=== PATIENT | female | born 1970 | race Caucasian/White ===

== ENCOUNTER 2019-04-16 12:09 | Inpatient (IN) ==
[2019-04-16] MEDS ORDERED: SODIUM CHLORIDE 0.9% 1,000 ML IV STA ×2 (12:31→14:23)
[2019-04-16] MEDS ORDERED: ONDANSETRON 4 MG/2 ML VIAL IV STA (12:31)
[2019-04-16] MEDS ORDERED: methylPREDNISolone SOD SUC 125 MG/2 ML VIAL IV STA (12:31)
[2019-04-16] MEDS ORDERED: cefTRIAXone 1,000 MG in SODIUM CHLORIDE 0.9% 100 ML IV STA (12:31)
[2019-04-16] MEDS ORDERED: LEVOFLOXACIN INJ 750 MG in PREMIX 1 EACH IV STA (12:31)
[2019-04-16] MEDS ORDERED: ALBUTEROL NEB SOLN 5 MG/ML 20 ML/BOTTLE RESP TX SCH (13:00)
[2019-04-16 13:52] LABS: Basophils # 0.2 10*3/uL (0.0-0.2); Basophils % 0.7 % (0.0-0.8); Eosinophils # 0.1 10*3/uL (0.0-0.87); Eosinophils % 0.3 % (0.00-10.9); Hematocrit 35.9 VOL% (35.7-47.0); Hemoglobin 12.1 GM/DL (12.0-16.0); Immature Granulocytes % 1.1 %; Immature Granulocytes Absolute 0.31 #; Lymphocytes # 4.7 10*3/uL (1.4-4.0); Lymphocytes % 17.2 % (21.3-54.2); Mean Corpuscular HGB Conc 33.7 GM/DL (32-36); Mean Corpuscular Volume 89.3 FL (87-102); Mean Platelet Volume 9.6 FL (9.6-12.0); Monocytes % 9.7 % (1.7-12.7); Platelet Count 474 T/CUMM (130-400); Red Blood Count 4.02 MC/CUMM (3.8-5.5); Red Cell Distribution Width 14.4 % (9.3-17.3); White Blood Count 27.2 T/CUMM (4-12)
[2019-04-16 14:06] LABS: Barbiturates Screen,Urine Negative (Negative); Benzodiazepines Screen,Urine Positive (Negative); Cannabinoid Screen,Urine Negative (Negative); Opiate Screen,Urine Negative (Negative); Phencyclidine Screen,Urine Negative (Negative)
[2019-04-16 14:09] LABS: Apearance,Urine CLOUDY (Clear); Bilirubin,Urine Negative (Negative); Blood, Urine Negative (Negative); Glucose,Urine (UA) Negative (Negative); Hyaline Casts,Urine 388 /LPF (0-3); Ketones,Urine Negative (Negative); Mucus,Urine Few /LPF (Occasional); Nitrite,Urine Negative (Negative); Protein,Urine 30 MG/DL; RBC,Urine 20 /HPF (0-4); Urine Color Amber (Yellow); Urine Specific Gravity 1.019 (1.001-1.035); WBC,Urine 682 /HPF (0-6)
[2019-04-16 14:09] LABS: INR 1.1; PT Patient Result 11.4 SECS (9.6-12.2); Partial Thromboplastin Time 36.3 SECS (20.8-36.0)
[2019-04-16 14:19] LABS: Alanine Aminotransferase 15 U/L (13-56); Albumin 3.3 G/DL (3.4-5.0); Alkaline Phosphatase 177 U/L (45-117); Aspartate Amino Transferase 11 U/L (0-37); Blood Urea Nitrogen 20 MG/DL (7-18); Glucose 102 MG/DL (74-106); Osmolality,Calculated 268.4 MOS/KG (273-304); Total Protein 6.4 G/DL (6.4-8.3); Troponin I < 0.015 NG/ML (0.00-0.045)
[2019-04-16] MEDS ORDERED: POTASSIUM BICARB EFFERVESCENT 25 MEQ TABLET PO ONE (14:23)
[2019-04-16 15:29] LABS: Band Neutrophils 3 % (0-10); Eosinophils 1 % (0-10); Lymphocytes 13 % (20-55); Segmented Neutrophils 73 % (50-85); Total Cells Counted 100
[2019-04-16 15:31] LABS: Burr Cells 3+
[2019-04-16 15:32] LABS: Acanthocytes 1+; Polychromasia Slight
[2019-04-16 15:33] LABS: Anisocytosis 1+
[2019-04-16 15:35] LABS: Microcytosis 1+; Poikilocytosis 1+; Target Cells Few
[2019-04-16 15:36] LABS: Hypochromasia Slight; Reactive Lymphocytes 2+; Toxic Granulation 1+
[2019-04-16 15:37] LABS: Platelet Estimate Normal
[2019-04-16] MEDS ORDERED: ONDANSETRON 4 MG/2 ML VIAL IV PRN (15:37)
[2019-04-16] MEDS: OXcarbazepine 300 MG TABLET PO SCH (21:36)
[2019-04-16] MEDS: ENOXAPARIN 40 MG/0.4 ML SYRINGE SUBCUT SCH (21:37)
[2019-04-16] MEDS: GABAPENTIN 300 MG CAPSULE PO SCH (21:37)
[2019-04-16] MEDS: ZIPRASIDONE 20 MG CAPSULE PO SCH (21:37)
[2019-04-16] MEDS: guaiFENesin/DM ER 600-30 MG TABLET PO SCH (21:37)
[2019-04-16] MEDS: MORPHINE 4 MG/1 ML VIAL IV PRN (21:48)
[2019-04-16] MEDS: SODIUM CHLORIDE 0.9% 1,000 ML IV SCH (21:49)
[2019-04-17 03:00] LABS: Basophils % 0.2 % (0.0-0.8); Hematocrit 28.7 VOL% (35.7-47.0); Hemoglobin 9.8 GM/DL (12.0-16.0); Immature Granulocytes % 0.7 %; Immature Granulocytes Absolute 0.13 #; Lymphocytes # 1.1 10*3/uL (1.4-4.0); Lymphocytes % 6.2 % (21.3-54.2); Mean Corpuscular HGB Conc 34.1 GM/DL (32-36); Mean Platelet Volume 10.7 FL (9.6-12.0); Monocytes % 2.8 % (1.7-12.7); Neutrophils % 90.1 % (38.7-73.9); Platelet Count 394 T/CUMM (130-400); Red Cell Distribution Width 14.5 % (9.3-17.3); White Blood Count 18.3 T/CUMM (4-12)
[2019-04-17 03:17] LABS: Albumin 2.3 G/DL (3.4-5.0); Bilirubin,Total 0.4 MG/DL (0.2-1.0); Calcium 9.4 MG/DL (8.5-10.1); Osmolality,Calculated 275.8 MOS/KG (273-304); Risk Ratio 2.65; Thyroid Stimulating Hormone 0.397 uIU/ml (0.358-3.74); Total Protein 5.6 G/DL (6.4-8.3)
[2019-04-17 04:12] LABS: Anisocytosis 1+; Band Neutrophils 4 % (0-10); Hypochromasia 1+; Lymphocytes 9 % (20-55); Microcytosis 1+; Segmented Neutrophils 83 % (50-85); Total Cells Counted 100
[2019-04-17 04:13] LABS: Burr Cells 1+; Platelet Estimate Adequate; Reactive Lymphocytes 1+
[2019-04-17] MEDS: MORPHINE 4 MG/1 ML VIAL IV PRN ×4 (05:28→18:38)
[2019-04-17] MEDS: SODIUM CHLORIDE 0.9% 1,000 ML IV SCH ×2 (07:56→17:51)
[2019-04-17] MEDS: hydroCHLOROthiazide 25 MG TABLET PO SCH (09:02)
[2019-04-17] MEDS: guaiFENesin/DM ER 600-30 MG TABLET PO SCH ×2 (09:02→20:33)
[2019-04-17] MEDS: LOSARTAN 50 MG TABLET PO SCH (09:02)
[2019-04-17] MEDS: GABAPENTIN 300 MG CAPSULE PO SCH ×2 (09:03→20:33)
[2019-04-17] MEDS: PANTOPRAZOLE 40 MG TABLET PO SCH (09:03)
[2019-04-17] MEDS: OXcarbazepine 300 MG TABLET PO SCH ×2 (09:04→20:33)
[2019-04-17] MEDS: POTASSIUM CHLORIDE 20 MEQ TABLET PO PRN ×4 (11:35→17:52)
[2019-04-17] MEDS: ZIPRASIDONE 20 MG CAPSULE PO SCH ×2 (11:36→20:33)
[2019-04-17] MEDS: ENOXAPARIN 40 MG/0.4 ML SYRINGE SUBCUT SCH (20:33)
[2019-04-18] MEDS: SODIUM CHLORIDE 0.9% 1,000 ML IV SCH ×2 (04:21→15:30)
[2019-04-18 04:34] LABS: Basophils % 0.1 % (0.0-0.8); Eosinophils % 0.1 % (0.00-10.9); Hematocrit 27.2 VOL% (35.7-47.0); Hemoglobin 8.9 GM/DL (12.0-16.0); Lymphocytes # 4.9 10*3/uL (1.4-4.0); Lymphocytes % 23.7 % (21.3-54.2); Mean Corpuscular HGB Conc 32.7 GM/DL (32-36); Mean Corpuscular Volume 89.2 FL (87-102); Mean Platelet Volume 11.4 FL (9.6-12.0); Monocytes % 7.7 % (1.7-12.7); Neutrophils % 67.4 % (38.7-73.9); Platelet Count 318 T/CUMM (130-400); Red Blood Count 3.05 MC/CUMM (3.8-5.5); Red Cell Distribution Width 15.1 % (9.3-17.3); White Blood Count 20.5 T/CUMM (4-12)
[2019-04-18] MEDS: MORPHINE 4 MG/1 ML VIAL IV PRN ×3 (04:36→20:50)
[2019-04-18 05:08] LABS: Alanine Aminotransferase 18 U/L (13-56); Albumin 2.1 G/DL (3.4-5.0); Alkaline Phosphatase 132 U/L (45-117); Aspartate Amino Transferase 13 U/L (0-37); Bilirubin,Total < 0.39 MG/DL (0.2-1.0); Blood Urea Nitrogen 11 MG/DL (7-18); Calcium 9.5 MG/DL (8.5-10.1); Glucose 81 MG/DL (74-106); Osmolality,Calculated 280.1 MOS/KG (273-304); Total Protein 4.9 G/DL (6.4-8.3)
[2019-04-18 05:09] LABS: Lymphocytes 18 % (20-55); Segmented Neutrophils 80 % (50-85); Total Cells Counted 100
[2019-04-18 05:11] LABS: Acanthocytes Few; Anisocytosis Slight; Microcytosis 1+; Target Cells Few
[2019-04-18 05:13] LABS: Howell-Jolly Bodies Few; Polychromasia Slight
[2019-04-18 05:14] LABS: Platelet Estimate Normal
[2019-04-18] MEDS: ALBUTEROL/IPRATROPIUM 3 ML NEB RESP TX PRN (06:46)
[2019-04-18] MEDS: LOSARTAN 50 MG TABLET PO SCH (10:35)
[2019-04-18] MEDS: ZIPRASIDONE 20 MG CAPSULE PO SCH ×2 (10:35→20:44)
[2019-04-18] MEDS: hydroCHLOROthiazide 25 MG TABLET PO SCH (10:37)
[2019-04-18] MEDS: ACETAMINOPHEN 325 MG TABLET PO PRN (10:38)
[2019-04-18] MEDS: OXcarbazepine 300 MG TABLET PO SCH ×2 (10:38→20:44)
[2019-04-18] MEDS: guaiFENesin/DM ER 600-30 MG TABLET PO SCH ×2 (10:38→20:44)
[2019-04-18] MEDS: PANTOPRAZOLE 40 MG TABLET PO SCH (10:38)
[2019-04-18] MEDS: GABAPENTIN 300 MG CAPSULE PO SCH ×2 (10:39→20:44)
[2019-04-18] MEDS: LEVOFLOXACIN INJ 750 MG in PREMIX 1 EACH IV SCH (12:46)
[2019-04-18] MEDS ORDERED: LEVOFLOXACIN INJ 750 MG in PREMIX 1 EACH IV SCH (15:00)
[2019-04-18] MEDS: ENOXAPARIN 40 MG/0.4 ML SYRINGE SUBCUT SCH (20:45)
[2019-04-19] MEDS: SODIUM CHLORIDE 0.9% 1,000 ML IV SCH ×3 (05:47→17:23)
[2019-04-19 05:54] LABS: Basophils # 0.1 10*3/uL (0.0-0.2); Basophils % 0.6 % (0.0-0.8); Eosinophils # 0.1 10*3/uL (0.0-0.87); Eosinophils % 0.6 % (0.00-10.9); Hematocrit 30.1 VOL% (35.7-47.0); Immature Granulocytes % 2.5 %; Immature Granulocytes Absolute 0.53 #; Lymphocytes # 6.9 10*3/uL (1.4-4.0); Lymphocytes % 32.8 % (21.3-54.2); Mean Corpuscular HGB Conc 33.2 GM/DL (32-36); Mean Corpuscular Volume 89.6 FL (87-102); Mean Platelet Volume 10.2 FL (9.6-12.0); Monocytes % 12.6 % (1.7-12.7); NRBC # 0.02 10*3/uL; Neutrophils % 50.9 % (38.7-73.9); Platelet Count 468 T/CUMM (130-400); Red Blood Count 3.36 MC/CUMM (3.8-5.5); Red Cell Distribution Width 15.4 % (9.3-17.3); White Blood Count 20.9 T/CUMM (4-12)
[2019-04-19 06:16] LABS: Eosinophils 2 % (0-10); Hypochromasia 1+; Lymphocytes 27 % (20-55); Ovalocytes Slight; Platelet Estimate Adequate; Segmented Neutrophils 57 % (50-85); Total Cells Counted 100
[2019-04-19 06:17] LABS: Microcytosis 1+
[2019-04-19 06:31] LABS: Albumin 2.3 G/DL (3.4-5.0); Bilirubin,Total 0.5 MG/DL (0.2-1.0); Calcium 9.6 MG/DL (8.5-10.1); Osmolality,Calculated 275.4 MOS/KG (273-304); Total Protein 5.2 G/DL (6.4-8.3)
[2019-04-19] MEDS: ACETAMINOPHEN 325 MG TABLET PO PRN ×2 (07:45→13:18)
[2019-04-19] MEDS: PANTOPRAZOLE 40 MG TABLET PO SCH (10:55)
[2019-04-19] MEDS: GABAPENTIN 300 MG CAPSULE PO SCH ×2 (10:56→20:45)
[2019-04-19] MEDS: ZIPRASIDONE 20 MG CAPSULE PO SCH ×2 (10:56→20:44)
[2019-04-19] MEDS: POTASSIUM CHLORIDE 20 MEQ TABLET PO PRN (10:56)
[2019-04-19] MEDS: LOSARTAN 50 MG TABLET PO SCH (10:56)
[2019-04-19] MEDS: OXcarbazepine 300 MG TABLET PO SCH ×2 (10:56→20:44)
[2019-04-19] MEDS: hydroCHLOROthiazide 25 MG TABLET PO SCH (10:57)
[2019-04-19] MEDS: guaiFENesin/DM ER 600-30 MG TABLET PO SCH (12:41)
[2019-04-19] MEDS: LEVOFLOXACIN INJ 750 MG in PREMIX 1 EACH IV SCH (12:53)
[2019-04-19] MEDS: MORPHINE 4 MG/1 ML VIAL IV PRN ×2 (18:00→23:23)
[2019-04-19] MEDS: ENOXAPARIN 40 MG/0.4 ML SYRINGE SUBCUT SCH (20:44)
[2019-04-19] MEDS: ALBUTEROL/IPRATROPIUM 3 ML NEB RESP TX PRN (23:55)
[2019-04-20 04:24] LABS: Basophils # 0.1 10*3/uL (0.0-0.2); Basophils % 0.6 % (0.0-0.8); Eosinophils # 0.2 10*3/uL (0.0-0.87); Eosinophils % 0.8 % (0.00-10.9); Hematocrit 29.8 VOL% (35.7-47.0); Immature Granulocytes % 4.5 %; Immature Granulocytes Absolute 0.92 #; Lymphocytes # 6.3 10*3/uL (1.4-4.0); Lymphocytes % 30.9 % (21.3-54.2); Mean Corpuscular HGB Conc 33.6 GM/DL (32-36); Mean Corpuscular Volume 87.6 FL (87-102); Mean Platelet Volume 10.4 FL (9.6-12.0); Monocytes % 11.6 % (1.7-12.7); NRBC # 0.02 10*3/uL; Neutrophils % 51.6 % (38.7-73.9); Platelet Count 444 T/CUMM (130-400); Red Cell Distribution Width 14.9 % (9.3-17.3); White Blood Count 20.5 T/CUMM (4-12)
[2019-04-20 04:48] LABS: Calcium 9.2 MG/DL (8.5-10.1); Osmolality,Calculated 274.4 MOS/KG (273-304)
[2019-04-20 04:52] LABS: Band Neutrophils 2 % (0-10); Hypochromasia 1+; Lymphocytes 35 % (20-55); Platelet Estimate Adequate; Segmented Neutrophils 56 % (50-85); Total Cells Counted 100
[2019-04-20 04:53] LABS: Microcytosis 1+
[2019-04-20] MEDS: SODIUM CHLORIDE 0.9% 1,000 ML IV SCH ×2 (05:13→11:16)
[2019-04-20] MEDS: ACETAMINOPHEN 325 MG TABLET PO PRN (07:19)
[2019-04-20 07:53] VITALS: BP 135/84
[2019-04-20] MEDS ORDERED: MAGNESIUM SULF RIDER 4 GM in PREMIX 1 EACH IV ONE (08:16)
[2019-04-20] MEDS: PANTOPRAZOLE 40 MG TABLET PO SCH (10:07)
[2019-04-20] MEDS: GABAPENTIN 300 MG CAPSULE PO SCH (10:07)
[2019-04-20] MEDS: LOSARTAN 50 MG TABLET PO SCH (10:07)
[2019-04-20] MEDS: OXcarbazepine 300 MG TABLET PO SCH (10:08)
[2019-04-20] MEDS: POTASSIUM CHLORIDE RIDER 10 MEQ in PREMIX 1 EACH IV SCH ×2 (11:16→11:17)
[2019-04-20] MEDS ORDERED: MAGNESIUM OXIDE 400 MG TABLET PO ONE (11:32)
[2019-04-20] MEDS ORDERED: POTASSIUM CHLORIDE 20 MEQ TABLET PO ONE (11:51)
[2019-04-20] MEDS: ZIPRASIDONE 20 MG CAPSULE PO SCH (11:57)
[2019-04-20] MEDS: hydroCHLOROthiazide 25 MG TABLET PO SCH (11:57)
== END 2019-04-20 12:18 | disposition home or self-care (01) | DRG 139 ==
LOC: EDBD → EDUNIT# → N.ED 12:09 → N.EDINP 15:37 → N.5E 17:02
PROVIDERS: ADMIT Internal Medicine; ATTEND Internal Medicine

== ENCOUNTER 2020-03-02 09:21 | Inpatient (IN) ==
[2020-03-02] MEDS ORDERED: SODIUM CHLORIDE 0.9% 1,000 ML IV STA (09:39)
[2020-03-02] MEDS ORDERED: ONDANSETRON 4 MG/2 ML VIAL IV STA (09:39)
[2020-03-02 10:03] LABS: Basophils # 0.3 10*3/uL (0.0-0.2); Basophils % 2.5 % (0.0-0.8); Eosinophils % 0.3 % (0.00-10.9); Hematocrit 38.2 VOL% (35.7-47.0); Hemoglobin 12.5 GM/DL (12.0-16.0); Hgb & Hct Comparison OK; Immature Granulocytes % 0.6 %; Immature Granulocytes Absolute 0.06 #; Immature Platelet Fraction 10.4 % (0.0-7.0); Lymphocytes # 4.2 10*3/uL (1.4-4.0); Lymphocytes % 42.1 % (21.3-54.2); Mean Corpuscular HGB Conc 32.7 GM/DL (32-36); Mean Corpuscular Hemoglobin 29 PG (27-34); Mean Corpuscular Volume 88.6 FL (87-102); Monocytes # 0.9 10*3/uL (0.11-0.8); Neutrophils # 4.5 10*3/uL (1.4-7.4); Neutrophils % 45.5 % (38.7-73.9); Platelet Count 286 T/CUMM (130-400)
[2020-03-02 10:21] LABS: Alanine Aminotransferase 24 U/L (13-56); Albumin/Globulin Ratio 1.1 RATIO (1.1-2.2); Alkaline Phosphatase 170 U/L (45-117); Anion Gap 6.7 MMOL/L (5.0-15.0); Aspartate Amino Transferase 26 U/L (0-37); Bilirubin,Total < 0.39 MG/DL (0.2-1.0); Blood Urea Nitrogen 18 MG/DL (7-18); Carbon Dioxide 25 MMOL/L (21-32); Chloride 109 MMOL/L (98-107); Estimated Glom Filtration Rate 82 ML/MIN; Globulin 3.2 G/DL (2.3-3.5); Potassium 4.7 MMOL/L (3.5-5.1); Sodium 136 MMOL/L (136-145)
[2020-03-02 10:41] LABS: Atypical Lymphocytes Few; Band Neutrophils 3 % (0-10); Hypochromasia 2+; Lymphocytes 42 % (20-55); Monocytes 10 % (2-15); Polychromasia Slight; Reactive Lymphocytes Few; Segmented Neutrophils 45 % (50-85); Total Cells Counted 100
[2020-03-02 10:42] LABS: Platelet Estimate Increased
[2020-03-02] MEDS ORDERED: ALBUTEROL/IPRATROPIUM 3 ML NEB RESP TX STA (10:45)
[2020-03-02] MEDS ORDERED: GLUCAGON 1 MG VIAL IM PRN (11:47)
[2020-03-02] MEDS ORDERED: PROMETHAZINE 25 MG/1 ML VIAL IM PRN (11:47)
[2020-03-02] MEDS ORDERED: ONDANSETRON 4 MG/2 ML VIAL IV PRN (11:47)
[2020-03-02] MEDS ORDERED: NICOTINE 21 MG/24 HR PATCH TRANSDERM PRN (11:47)
[2020-03-02] MEDS ORDERED: DEXTROSE 50% 25 GM/50 ML VIAL IV PRN (11:47)
[2020-03-02] MEDS: SODIUM CHLORIDE 0.9% 1,000 ML IV SCH (12:29)
[2020-03-02] MEDS: ENOXAPARIN 40 MG/0.4 ML SYRINGE SUBCUT SCH (12:29)
[2020-03-02] MEDS: PANTOPRAZOLE 40 MG VIAL IV SCH (12:30)
[2020-03-02] MEDS: HYDROmorphone 2 MG/1 ML VIAL IV PRN (12:40)
[2020-03-02 12:45] LABS: Apearance,Urine CLOUDY (Clear); Bilirubin,Urine Negative (Negative); Blood, Urine Negative (Negative); Calcium Oxalate Crystals,Urine Moderate /HPF (Few); Glucose,Urine (UA) Negative (Negative); Ketones,Urine Negative (Negative); Mucus,Urine Occasional /LPF (Occasional); Nitrite,Urine Negative (Negative); Protein,Urine Negative; RBC,Urine 1 /HPF (0-4); Squamous Epithelial Cell,Urine Occasional /HPF (0-10); Urine Color Yellow (Yellow); Urine Urobilinogen < 2.0 EU/DL (0.2-1.0); WBC,Urine 3 /HPF (0-6)
[2020-03-02 12:58] LABS: Culture Indicated,Urine Not Indicated
[2020-03-02] MEDS ORDERED: ALBUTEROL 2.5 MG/3 ML NEB RESP TX PRN (13:43)
[2020-03-02] MEDS: MORPHINE 4 MG/1 ML VIAL IV PRN ×2 (16:21→20:41)
[2020-03-02 18:33] LABS: Barbiturates Screen,Urine Negative (Negative); Cannabinoid Screen,Urine Negative (Negative); Phencyclidine Screen,Urine Negative (Negative)
[2020-03-02 18:34] LABS: Was Specimen Discarded? Yes
[2020-03-03] MEDS: ONDANSETRON 4 MG/2 ML VIAL IV PRN ×2 (00:04→08:43)
[2020-03-03] MEDS: MORPHINE 4 MG/1 ML VIAL IV PRN ×3 (01:10→17:26)
[2020-03-03] MEDS: SODIUM CHLORIDE 0.9% 1,000 ML IV SCH (01:12)
[2020-03-03] MEDS: ACETAMINOPHEN 325 MG TABLET PO PRN ×3 (04:16→20:27)
[2020-03-03] MEDS: HYDROmorphone 2 MG/1 ML VIAL IV PRN ×3 (04:31→22:37)
[2020-03-03 06:02] LABS: Basophils # 0.3 10*3/uL (0.0-0.2); Basophils % 2.9 % (0.0-0.8); Hematocrit 36.5 VOL% (35.7-47.0); Hemoglobin 11.6 GM/DL (12.0-16.0); Hgb & Hct Comparison OK; Immature Granulocytes % 0.4 %; Immature Granulocytes Absolute 0.04 #; Lymphocytes # 3.1 10*3/uL (1.4-4.0); Lymphocytes % 32.8 % (21.3-54.2); Mean Corpuscular HGB Conc 31.8 GM/DL (32-36); Mean Corpuscular Hemoglobin 29 PG (27-34); Mean Corpuscular Volume 91.7 FL (87-102); Monocytes % 10.7 % (1.7-12.7); Neutrophils % 53.2 % (38.7-73.9); Platelet Count 487 T/CUMM (130-400)
[2020-03-03 06:31] LABS: Albumin/Globulin Ratio 1.2 RATIO (1.1-2.2); Anion Gap 8.4 MMOL/L (5.0-15.0); Globulin 2.9 G/DL (2.3-3.5); Osmolality,Calculated 275.5 MOS/KG (273-304); Potassium 4.4 MMOL/L (3.5-5.1); VLDL CHOLESTEROL 12.6 MG/DL
[2020-03-03 06:58] LABS: Band Neutrophils 1 % (0-10); Eosinophils 3 % (0-10); Lymphocytes 30 % (20-55); Monocytes 8 % (2-15); Segmented Neutrophils 58 % (50-85); Total Cells Counted 100
[2020-03-03 06:59] LABS: Hypochromasia 1+
[2020-03-03] MEDS: PANTOPRAZOLE 40 MG VIAL IV SCH (08:42)
[2020-03-03] MEDS: DEXTROSE 5% NACL 0.45% 1,000 ML IV SCH ×2 (13:38→22:30)
[2020-03-03 13:52] LABS: Hepatitis A Ab IgM Quant 0.15 Index; Hepatitis A Ab IgM Result Negative (Negative); Hepatitis B Core IgM Quant 0.15 Index; Hepatitis B Core IgM Result Negative (Negative); Hepatitis B Surface Ag Quant < 0.10 Index; Hepatitis B Surface Ag Result Negative (Negative); Hepatitis C Virus Ab Quant 0.02 Index; Hepatitis C Virus Ab Result Negative (Negative)
[2020-03-03] MEDS: ENOXAPARIN 40 MG/0.4 ML SYRINGE SUBCUT SCH (14:14)
[2020-03-03] MEDS: diphenhydrAMINE CAP 25 MG CAPSULE PO PRN (15:39)
[2020-03-03] MEDS: hydrALAZINE 20 MG/1 ML VIAL IV PRN (18:50)
[2020-03-04] MEDS: diphenhydrAMINE CAP 25 MG CAPSULE PO PRN ×3 (00:58→23:02)
[2020-03-04] MEDS: hydrALAZINE 20 MG/1 ML VIAL IV PRN (04:56)
[2020-03-04] MEDS: HYDROmorphone 2 MG/1 ML VIAL IV PRN ×4 (05:00→20:10)
[2020-03-04 05:21] LABS: Basophils # 0.2 10*3/uL (0.0-0.2); Basophils % 1.8 % (0.0-0.8); Hematocrit 34.3 VOL% (35.7-47.0); Hemoglobin 10.9 GM/DL (12.0-16.0); Hgb & Hct Comparison OK; Immature Granulocytes % 0.4 %; Immature Granulocytes Absolute 0.06 #; Immature Platelet Fraction 3.1 % (0.0-7.0); Lymphocytes # 4.3 10*3/uL (1.4-4.0); Lymphocytes % 31.6 % (21.3-54.2); Mean Corpuscular HGB Conc 31.8 GM/DL (32-36); Mean Corpuscular Hemoglobin 29 PG (27-34); Monocytes # 1.3 10*3/uL (0.11-0.8); Monocytes % 9.4 % (1.7-12.7); Neutrophils # 7.7 10*3/uL (1.4-7.4); Neutrophils % 56.8 % (38.7-73.9); Platelet Count 403 T/CUMM (130-400)
[2020-03-04 05:44] LABS: Albumin/Globulin Ratio 1.4 RATIO (1.1-2.2); Anion Gap 7.6 MMOL/L (5.0-15.0); Bilirubin,Total 0.4 MG/DL (0.2-1.0); Globulin 2.7 G/DL (2.3-3.5); Osmolality,Calculated 265.2 MOS/KG (273-304); Potassium 3.6 MMOL/L (3.5-5.1)
[2020-03-04 06:27] LABS: Band Neutrophils 3 % (0-10); Lymphocytes 32 % (20-55); Macrocytosis 2+; Monocytes 10 % (2-15); Platelet Estimate Normal; Segmented Neutrophils 55 % (50-85); Total Cells Counted 100
[2020-03-04] MEDS: DEXTROSE 5% NACL 0.45% 1,000 ML IV SCH ×2 (07:52→18:42)
[2020-03-04] MEDS: PANTOPRAZOLE 40 MG VIAL IV SCH (08:34)
[2020-03-04] MEDS: ACETAMINOPHEN 325 MG TABLET PO PRN (08:34)
[2020-03-04] MEDS: ONDANSETRON 4 MG/2 ML VIAL IV PRN ×2 (10:21→19:58)
[2020-03-04 10:25] LABS: Cancer Antigen 19-9 23.9 U/ML (0-37)
[2020-03-04] MEDS: ENOXAPARIN 40 MG/0.4 ML SYRINGE SUBCUT SCH (11:38)
[2020-03-04] MEDS: GABAPENTIN 300 MG CAPSULE PO SCH ×2 (15:02→21:55)
[2020-03-04] MEDS: OXcarbazepine 300 MG TABLET PO SCH (21:56)
[2020-03-04] MEDS: ZIPRASIDONE 20 MG CAPSULE PO SCH (21:56)
[2020-03-05] MEDS: ONDANSETRON 4 MG/2 ML VIAL IV PRN ×2 (03:37→11:46)
[2020-03-05] MEDS: HYDROmorphone 2 MG/1 ML VIAL IV PRN ×2 (03:38→11:46)
[2020-03-05 06:29] LABS: Basophils # 0.1 10*3/uL (0.0-0.2); Basophils % 0.6 % (0.0-0.8); Hematocrit 34.9 VOL% (35.7-47.0); Hemoglobin 10.9 GM/DL (12.0-16.0); Hgb & Hct Comparison OK; Immature Granulocytes % 0.4 %; Immature Granulocytes Absolute 0.07 #; Lymphocytes # 2.4 10*3/uL (1.4-4.0); Lymphocytes % 15.2 % (21.3-54.2); Mean Corpuscular HGB Conc 31.2 GM/DL (32-36); Mean Corpuscular Hemoglobin 29 PG (27-34); Mean Corpuscular Volume 92.8 FL (87-102); Monocytes # 1.1 10*3/uL (0.11-0.8); Monocytes % 6.9 % (1.7-12.7); Neutrophils # 12.3 10*3/uL (1.4-7.4); Neutrophils % 76.9 % (38.7-73.9); Platelet Count 385 T/CUMM (130-400)
[2020-03-05] MEDS: LEVOTHYROXINE 75 MCG TABLET PO SCH (06:43)
[2020-03-05 06:52] LABS: Albumin/Globulin Ratio 1.2 RATIO (1.1-2.2); Anion Gap 10.7 MMOL/L (5.0-15.0); Bilirubin,Total 1.6 MG/DL (0.2-1.0); Globulin 2.7 G/DL (2.3-3.5); Osmolality,Calculated 271.5 MOS/KG (273-304); Potassium 3.7 MMOL/L (3.5-5.1)
[2020-03-05] MEDS: amLODIPine 10 MG TABLET PO SCH (09:10)
[2020-03-05] MEDS: SODIUM CHLORIDE 0.9% 1,000 ML IV SCH (09:10)
[2020-03-05] MEDS: GABAPENTIN 300 MG CAPSULE PO SCH ×3 (09:10→21:07)
[2020-03-05] MEDS: OXcarbazepine 300 MG TABLET PO SCH ×2 (09:10→21:07)
[2020-03-05] MEDS: PARoxetine 20 MG TABLET PO SCH (09:10)
[2020-03-05] MEDS: PANTOPRAZOLE 40 MG VIAL IV SCH (09:10)
[2020-03-05] MEDS: ENOXAPARIN 40 MG/0.4 ML SYRINGE SUBCUT SCH (11:46)
[2020-03-05] MEDS ORDERED: NALOXONE 0.4 MG/ML VIAL ONE ×2 (13:29→13:32)
[2020-03-05] MEDS: ALBUTEROL 2.5 MG/3 ML NEB RESP TX SCH ×2 (13:30→19:35)
[2020-03-05] MEDS: NALOXONE 0.4 MG/ML VIAL IV PRN ×2 (13:30→13:34)
[2020-03-05] MEDS ORDERED: LORazepam 2 MG/1 ML VIAL IV PRN (14:00)
[2020-03-05 14:20] LABS: Barbiturates Screen,Urine Negative (Negative); Cannabinoid Screen,Urine Negative (Negative); Phencyclidine Screen,Urine Negative (Negative)
[2020-03-05 14:25] LABS: Was Specimen Discarded? No
[2020-03-05 14:52] LABS: Basophils % 0.2 % (0.0-0.8); Hematocrit 33.8 VOL% (35.7-47.0); Hemoglobin 10.6 GM/DL (12.0-16.0); Hgb & Hct Comparison OK; Immature Granulocytes % 0.7 %; Immature Granulocytes Absolute 0.12 #; Lymphocytes # 1.6 10*3/uL (1.4-4.0); Mean Corpuscular HGB Conc 31.4 GM/DL (32-36); Mean Corpuscular Hemoglobin 29 PG (27-34); Mean Corpuscular Volume 93.4 FL (87-102); Monocytes # 1.5 10*3/uL (0.11-0.8); Neutrophils # 14.9 10*3/uL (1.4-7.4); Neutrophils % 82.1 % (38.7-73.9); Platelet Count 345 T/CUMM (130-400)
[2020-03-05] MEDS: diphenhydrAMINE CAP 25 MG CAPSULE PO PRN (15:10)
[2020-03-05] MEDS ORDERED: LORazepam 2 MG/1 ML VIAL IV ONE (15:20)
[2020-03-05 15:26] LABS: ABG Base Excess -4.4 MMOL/L (-2.5-2.5); ABG HCO3 20.3 MMOL/L (20-26); ABG Oxygen Saturation 66.5 % (95-100); ABG PH 7.237 (7.35-7.45); ABG TCO2 22.1 MMOL/L (23-27); Allen Test Positive; Amb Air Removed From Sample? Yes; Chart Checked? Yes; Duration of Pressure (Mins) 5; Number of Venipunct Attempts 1; Patient on Anticoagulant? No; Puncture Site Right Brachial; Sample Placed on Ice? Yes
[2020-03-05 15:29] LABS: Albumin/Globulin Ratio 1.4 RATIO (1.1-2.2); Anion Gap 13.6 MMOL/L (5.0-15.0); Bilirubin,Total 1.6 MG/DL (0.2-1.0); CKMB % 4.3 %; Globulin 2.3 G/DL (2.3-3.5); Magnesium 2.2 MG/DL (1.8-2.4); Osmolality,Calculated 265.2 MOS/KG (273-304); Potassium 4.6 MMOL/L (3.5-5.1)
[2020-03-05 15:31] LABS: Troponin I 0.409 NG/ML (0.00-0.045)
[2020-03-05] MEDS: ZIPRASIDONE 20 MG CAPSULE PO SCH (21:07)
[2020-03-05] MEDS: DEXTROSE 5% NACL 0.45% 1,000 ML IV SCH (23:51)
[2020-03-06] MEDS: ALBUTEROL 2.5 MG/3 ML NEB RESP TX SCH ×4 (00:56→19:40)
[2020-03-06] MEDS: LEVOTHYROXINE 75 MCG TABLET PO SCH (06:13)
[2020-03-06 07:33] LABS: INR 1.5; PT Patient Result 15.6 SECS (9.8-11.9)
[2020-03-06 08:50] LABS: Albumin/Globulin Ratio 1.3 RATIO (1.1-2.2); Anion Gap 10.3 MMOL/L (5.0-15.0); Globulin 2.4 G/DL (2.3-3.5); Osmolality,Calculated 268.2 MOS/KG (273-304); Potassium 3.3 MMOL/L (3.5-5.1)
[2020-03-06] MEDS ORDERED: propofoL 200 MG/20 ML VIAL IV ONE (09:00)
[2020-03-06] MEDS ORDERED: DEXAMETHASONE 4 MG/1 ML VIAL ONE (09:00)
[2020-03-06] MEDS ORDERED: ROCURONIUM 100 MG/10 ML VIAL IV ONE (09:00)
[2020-03-06] MEDS ORDERED: ONDANSETRON 4 MG/2 ML VIAL ONE (09:00)
[2020-03-06] MEDS ORDERED: SUCCINYLCHOLINE 200 MG/10 ML VIAL ONE (09:00)
[2020-03-06] MEDS ORDERED: LIDOCAINE 2% 5 ML VIAL ONE (09:00)
[2020-03-06] MEDS: amLODIPine 10 MG TABLET PO SCH (09:53)
[2020-03-06] MEDS ORDERED: INDOMETHACIN SUPP 50 MG SUPP RECTAL ONE (12:47)
[2020-03-06] MEDS ORDERED: LACTATED RINGERS 1,000 ML IV SCH (13:00)
[2020-03-06] MEDS: GABAPENTIN 300 MG CAPSULE PO SCH ×3 (13:59→20:41)
[2020-03-06] MEDS: ENOXAPARIN 40 MG/0.4 ML SYRINGE SUBCUT SCH (15:13)
[2020-03-06] MEDS: PARoxetine 20 MG TABLET PO SCH (15:13)
[2020-03-06] MEDS: PANTOPRAZOLE 40 MG VIAL IV SCH (15:13)
[2020-03-06] MEDS: OXcarbazepine 300 MG TABLET PO SCH ×2 (15:13→20:41)
[2020-03-06] MEDS: SODIUM CHLORIDE 0.9% 1,000 ML IV SCH (15:23)
[2020-03-06] MEDS: hydrALAZINE 20 MG/1 ML VIAL IV PRN (15:59)
[2020-03-06] MEDS: ACETAMINOPHEN 325 MG TABLET PO PRN (18:15)
[2020-03-06] MEDS: ZIPRASIDONE 20 MG CAPSULE PO SCH (20:41)
[2020-03-07] MEDS: ALBUTEROL 2.5 MG/3 ML NEB RESP TX SCH ×3 (00:03→13:07)
[2020-03-07] MEDS: hydrALAZINE 20 MG/1 ML VIAL IV PRN (00:48)
[2020-03-07] MEDS: SODIUM CHLORIDE 0.9% 1,000 ML IV SCH ×2 (05:47→11:50)
[2020-03-07] MEDS: LEVOTHYROXINE 75 MCG TABLET PO SCH (06:23)
[2020-03-07] MEDS ORDERED: POTASSIUM CHLORIDE 20 MEQ/15 ML UDCUP PO ONE (08:06)
[2020-03-07 08:13] LABS: Basophils % 0.2 % (0.0-0.8); Hematocrit 33.3 VOL% (35.7-47.0); Hemoglobin 10.8 GM/DL (12.0-16.0); Hgb & Hct Comparison OK; Immature Granulocytes % 0.6 %; Immature Granulocytes Absolute 0.09 #; Lymphocytes # 2.3 10*3/uL (1.4-4.0); Mean Corpuscular HGB Conc 32.4 GM/DL (32-36); Mean Corpuscular Hemoglobin 29 PG (27-34); Mean Corpuscular Volume 89.8 FL (87-102); Monocytes # 1.1 10*3/uL (0.11-0.8); Monocytes % 7.5 % (1.7-12.7); NRBC # 0.04 10*3/uL; Neutrophils # 11.6 10*3/uL (1.4-7.4); Neutrophils % 76.7 % (38.7-73.9); Nucleated Red Blood Cells % 0.3 /100WBC; Platelet Count 328 T/CUMM (130-400)
[2020-03-07 08:29] LABS: Albumin/Globulin Ratio 1.2 RATIO (1.1-2.2); Anion Gap 10.1 MMOL/L (5.0-15.0); Bilirubin,Total 0.9 MG/DL (0.2-1.0); Globulin 2.5 G/DL (2.3-3.5); Osmolality,Calculated 278.4 MOS/KG (273-304); Potassium 3.1 MMOL/L (3.5-5.1)
[2020-03-07 09:07] LABS: ABG Base Excess 0.6 MMOL/L (-2.5-2.5); ABG HCO3 24.9 MMOL/L (20-26); ABG Oxygen Saturation 95.3 % (95-100); ABG PH 7.465 (7.35-7.45); ABG TCO2 21.5 MMOL/L (23-27)
[2020-03-07] MEDS: OXcarbazepine 300 MG TABLET PO SCH (10:14)
[2020-03-07] MEDS: PANTOPRAZOLE 40 MG VIAL IV SCH (10:14)
[2020-03-07] MEDS: amLODIPine 10 MG TABLET PO SCH (10:15)
[2020-03-07] MEDS: GABAPENTIN 300 MG CAPSULE PO SCH (10:15)
[2020-03-07] MEDS: PARoxetine 20 MG TABLET PO SCH (10:16)
[2020-03-07 11:53] VITALS: BP 150/93
[2020-03-07] MEDS: ENOXAPARIN 40 MG/0.4 ML SYRINGE SUBCUT SCH (13:04)
== END 2020-03-07 13:02 | disposition home or self-care (01) ==
LOC: N.ED 09:21 → N.EDINP 09:21 → SUATTDRO 13:58 → N.EDINP 14:31 → N.3E 14:39
PROVIDERS: ADMIT Internal Medicine; ATTEND Internal Medicine